=== PATIENT | female | born 1945 | race Caucasian/White ===

== ENCOUNTER 2024-08-14 06:08 | Emergency (ER) | payer MEDICARE, BC ==
[~2024-08-14] VITALS: Ht 167.6 cm; Wt 76.7 kg
[2024-08-14 07:55] VITALS: BP 167/72; TEMP 97.9; O2SAT 96
== END 2024-08-14 07:56 | disposition home or self-care (01) ==
LOC: ER 06:10
DX: S09.8XXA Other specified injuries of head, initial encounter (principal); G20.A1 Parkinson's disease without dyskinesia, without mention of fluctuations; Z88.0 Allergy status to penicillin; W01.0XXA Fall on same level from slipping, tripping and stumbling without subsequent striking against object, initial encounter; Y93.89 Activity, other specified; Y92.091 Bathroom in other non-institutional residence as the place of occurrence of the external cause; Y99.8 Other external cause status
CPT/HCPCS: 70450-TC